=== PATIENT | male | born 1945 | race Caucasian/White ===

== ENCOUNTER → 2018-06-05 | Outpatient (CLI) | payer OTHER | END | disposition home or self-care (01) | LOC: CVU 07:09 | PROVIDERS: ATTEND Internal Medicine Cardiovascular Disease | DX: Z01.818 Encounter for other preprocedural examination (principal); I11.9 Hypertensive heart disease without heart failure | CPT/HCPCS: 78452; 93017; 93306; A9502 ==

== ENCOUNTER 2018-06-27 06:51 | Inpatient (IN) | payer OTHER ==
[~2018-06-27] VITALS: Ht 175.3 cm; Wt 119.4 kg
[2018-06-27 07:27] VITALS: BP 142/75
[2018-06-27] MEDS ORDERED: PLEASE ENTER HEIGHT AND WEIGHT MC SCH (07:30)
[2018-06-27] MEDS ORDERED: ASPIRIN 325 MG TABLET EC PO ONE (07:30)
[2018-06-27] MEDS ORDERED: VIT1CAPS42 PO (07:36)
[2018-06-27] MEDS ORDERED: DOXA2TAB9 PO (07:36)
[2018-06-27] MEDS ORDERED: IRBE75TA10 PO (07:36)
[2018-06-27] MEDS ORDERED: SPIR25TA5 PO (07:36)
[2018-06-27] MEDS ORDERED: ESOM40CA PO (07:36)
[2018-06-27] MEDS ORDERED: CHOL100011 PO (07:36)
[2018-06-27] MEDS ORDERED: CHLO25TA PO (07:36)
[2018-06-27] MEDS ORDERED: FENO145T30 PO (07:36)
[2018-06-27] MEDS ORDERED: ASCO100019 PO (07:36)
[2018-06-27] MEDS ORDERED: NEBI5TAB2 PO (07:36)
[2018-06-27] MEDS ORDERED: POTASSIUM CIT PO (07:36)
[2018-06-27] MEDS ORDERED: ATOR10TA PO (07:36)
[2018-06-27] MEDS ORDERED: OMEG-123 PO (07:36)
[2018-06-27] MEDS ORDERED: ASPIRIN 325 MG TABLET EC ONE (07:43)
[2018-06-27 07:54] LABS: BASOPHILS # (AUTO) 0.02 x10^3/uL (0-0.1); BASOPHILS % (AUTO) 0 % (0-1); EOSINOPHILS # (AUTO) 0.07 x10^3/uL (0-0.4); EOSINOPHILS % (AUTO) 1 % (1-7); LYMPHOCYTES # (AUTO) 1.49 x10^3/uL (1-3.4); LYMPHOCYTES % (AUTO) 26 % (22-44); MD NO; MEAN CORPUSCULAR HEMOGLOBIN 30.2 pg (27.5-34.5); MEAN CORPUSCULAR HGB CONC 33.7 g/dL (33.2-36.2); MEAN CORPUSCULAR VOLUME 89.7 fL (81-97); MEAN PLATELET VOLUME 8.1 fL (7.4-10.4); MONOCYTES # (AUTO) 0.44 x10^3/uL (0.2-0.8); MONOCYTES % (AUTO) 8 % (2-9); NEUTROPHILS # (AUTO) 3.76 x10^3/uL (1.8-6.8); NEUTROPHILS % (AUTO) 65 % (42-75); PLATELET COUNT 195 x10^3/uL (130-400); RED BLOOD COUNT 4.37 x10^6/uL (4.38-5.82); RED CELL DISTRIBUTION WIDTH 13.8 % (9.4-14.8)
[2018-06-27 08:06] LABS: ANION GAP 8 mmol/L (5-15); CALCIUM 8.6 mg/dL (8.5-10.1); CHLORIDE 104 mmol/L (98-107); CREATININE 1.35 mg/dL (0.7-1.3)
[2018-06-27] MEDS ORDERED: MIDAZOLAM 1 MG/ML, 2ML ONE (08:58)
[2018-06-27] MEDS ORDERED: FENTANYL PF 100 MCG/2ML ONE ×2 (08:59→14:06)
[2018-06-27] MEDS ORDERED: VERAPAMIL 2.5 MG/ML, 2ML ONE (14:06)
[2018-06-27] MEDS ORDERED: TICAGRELOR 90 MG TABLET ONE (14:06)
[2018-06-27] MEDS ORDERED: MIDAZOLAM 1 MG/ML, 5ML ONE (14:06)
[2018-06-27] MEDS ORDERED: BIVALIRUDIN 250 MG ONE ×2 (14:07→14:15)
[2018-06-27] MEDS ORDERED: PRASUGREL 10 MG TABLET ONE (14:14)
[2018-06-27] MEDS ORDERED: BIVALIRUDIN 250 MG in DEXTROSE 5% 50 ML IV SCH (15:21)
[2018-06-27] MEDS ORDERED: ONDANSETRON 2MG/ML, 2ML IVPush PRN (15:30)
[2018-06-27] MEDS ORDERED: ZOLPIDEM 5MG TABLET PO PRN (15:30)
[2018-06-27] MEDS ORDERED: ACETAMINOPHEN 325 MG TABLET PO PRN (15:30)
[2018-06-27] MEDS: SODIUM CHLORIDE 0.9% 1,000 ML IV SCH ×2 (17:02→23:41)
[2018-06-27 19:26] VITALS: BP 156/88
[2018-06-27] MEDS: OMEPRAZOLE 20 MG CAPSULE.DR PO SCH (20:57)
[2018-06-27] MEDS ORDERED: OMEGA-3/FISH OIL CAPSULE PO SCH (21:00)
[2018-06-27] MEDS ORDERED: TEMPLATE NON-FORMULARY MED. (Esomeprazole Magnesium** (Nexium**) 40 MG) PO SCH (21:00)
[2018-06-27] MEDS ORDERED: ATORVASTATIN 10 MG TABLET PO SCH (21:00)
[2018-06-27] MEDS ORDERED: IRBESARTAN 150 MG TABLET PO SCH (21:00)
[2018-06-27] MEDS ORDERED: ASCORBIC ACID 500 MG TABLET PO SCH (21:00)
[2018-06-28 01:33] VITALS: BP 137/75
[2018-06-28 05:43] LABS: ALBUMIN 3.3 g/dL (3.4-5.0); ANION GAP 7 mmol/L (5-15); CALCIUM 8.5 mg/dL (8.5-10.1); CHLORIDE 107 mmol/L (98-107); CREATININE 1.13 mg/dL (0.7-1.3)
[2018-06-28] MEDS: SODIUM CHLORIDE 0.9% 1,000 ML IV SCH (07:21)
[2018-06-28] MEDS ORDERED: OMEPRAZOLE 20 MG CAPSULE.DR PO SCH (07:30)
[2018-06-28 07:46] VITALS: BP 137/66
[2018-06-28] MEDS: OMEPRAZOLE 20 MG CAPSULE.DR PO SCH (08:14)
[2018-06-28] MEDS ORDERED: PRAS10TA4 PO (08:59)
[2018-06-28] MEDS ORDERED: ASPI-515 PO (08:59)
[2018-06-28] MEDS ORDERED: IRBESARTAN 150 MG TABLET PO SCH (09:00)
[2018-06-28] MEDS ORDERED: POTASSIUM CITRATE 1080 MG HOMEMEDPO SCH (09:00)
[2018-06-28] MEDS ORDERED: FENOFIBRATE 145 MG TABLET PO SCH (09:00)
[2018-06-28] MEDS ORDERED: DOXAZOSIN 2MG TABLET PO SCH (09:00)
[2018-06-28] MEDS ORDERED: SPIRONOLACTONE 25 MG TABLET PO SCH (09:00)
[2018-06-28] MEDS ORDERED: CHLORTHALIDONE 25 MG TABLET PO SCH (09:00)
[2018-06-28] MEDS ORDERED: CHOLECALCIFEROL 1,000 UNIT TABLET PO SCH (09:00)
[2018-06-28] MEDS ORDERED: NEBIVOLOL HCL 5 MG TABLET PO SCH (09:00)
[2018-06-28] MEDS ORDERED: PRASUGREL 10 MG TABLET PO SCH (09:00)
[2018-06-28] MEDS ORDERED: ASPIRIN 81 MG TABLET EC PO SCH (09:30)
== END 2018-06-28 11:12 | disposition home or self-care (01) | DRG 246 ==
LOC: CACL 06:51 → ORIP 15:12 → CACL 15:21 → 5SO 15:27 → DCLOUNGE 06-28 10:50
PROVIDERS: ADMIT Internal Medicine Cardiovascular Disease; ATTEND Internal Medicine Cardiovascular Disease
PROC: 027137Z Dilation of Coronary Artery, Two Arteries with Four or More Drug-eluting Intraluminal Devices, Percutaneous Approach (ICD-10-PCS; principal; 2018-06-27)
PROC: 4A023N7 Measurement of Cardiac Sampling and Pressure, Left Heart, Percutaneous Approach (ICD-10-PCS; 2018-06-27)
PROC: B2111ZZ Fluoroscopy of Multiple Coronary Arteries using Low Osmolar Contrast (ICD-10-PCS; 2018-06-27)
PROC: B2151ZZ Fluoroscopy of Left Heart using Low Osmolar Contrast (ICD-10-PCS; 2018-06-27)
DX: I25.10 Atherosclerotic heart disease of native coronary artery without angina pectoris (principal); I12.9 Hypertensive chronic kidney disease with stage 1 through stage 4 chronic kidney disease, or unspecified chronic kidney disease; N18.9 Chronic kidney disease, unspecified; K21.9 Gastro-esophageal reflux disease without esophagitis; E78.2 Mixed hyperlipidemia; Z82.0 Family history of epilepsy and other diseases of the nervous system; Z98.42 Cataract extraction status, left eye; Z98.41 Cataract extraction status, right eye; I86.8 Varicose veins of other specified sites
CPT/HCPCS: 36415; 93458; C9600; 80048; 82040; 85014; 85018; 85025; 93005; 93880; 93970; 99156; 99157; C1760; C1769; C1894; G0378; J0583; J2250; J3010; C1725; C1874; C1887; J7030; Q9967

== ENCOUNTER → 2019-01-09 | Outpatient (CLI) | payer OTHER ==
[~2019-01-09] MED LIST: ASCO100019 PO; ASPI-515 PO; ATOR10TA PO; CHLO25TA PO; CHOL100011 PO; DOXA2TAB9 PO; ESOM40CA PO; FENO145T30 PO; IRBE75TA10 PO; NEBI5TAB3 PO; OMEG-123 PO; POTASSIUM CIT PO; PRAS10TA4 PO; SPIR25TA5 PO; VIT1CAPS42 PO
== END | disposition home or self-care (01) ==
LOC: CVU 12:24
PROVIDERS: ATTEND Internal Medicine Cardiovascular Disease
DX: I86.8 Varicose veins of other specified sites (principal); R06.02 Shortness of breath; R05 Cough; I10 Essential (primary) hypertension; E78.2 Mixed hyperlipidemia; E11.9 Type 2 diabetes mellitus without complications; I25.10 Atherosclerotic heart disease of native coronary artery without angina pectoris; E78.00 Pure hypercholesterolemia, unspecified
CPT/HCPCS: 93922

== ENCOUNTER → 2019-01-10 | Outpatient (CLI) | payer OTHER ==
[~2019-01-10] MED LIST changes: +REGADENOSON 0.4 MG/5 ML SYRINGE ONE
== END | disposition home or self-care (01) ==
LOC: CFH 12:46
PROVIDERS: ATTEND Internal Medicine Cardiovascular Disease
DX: I10 Essential (primary) hypertension (principal); R06.02 Shortness of breath; M79.609 Pain in unspecified limb; I86.8 Varicose veins of other specified sites
CPT/HCPCS: 78452; 93017; A9502; J2785

== ENCOUNTER 2019-02-07 08:55 | Day surgery (SDC) | payer OTHER ==
[~2019-02-07] VITALS: Ht 175.3 cm; Wt 125.0 kg
[~2019-02-07 08:55] MED LIST changes: -REGADENOSON 0.4 MG/5 ML SYRINGE ONE
[2019-02-07 09:21] VITALS: BP 124/72
[2019-02-07 09:59] LABS: BASOPHILS # (AUTO) 0.02 x10^3/uL (0-0.1); BASOPHILS % (AUTO) 0 % (0-1); EOSINOPHILS # (AUTO) 0.08 x10^3/uL (0-0.4); EOSINOPHILS % (AUTO) 2 % (1-7); LYMPHOCYTES # (AUTO) 1.26 x10^3/uL (1-3.4); LYMPHOCYTES % (AUTO) 23 % (22-44); MD NO; MEAN CORPUSCULAR HEMOGLOBIN 30.2 pg (27.5-34.5); MEAN CORPUSCULAR HGB CONC 33.6 g/dL (33.2-36.2); MEAN CORPUSCULAR VOLUME 89.7 fL (81-97); MONOCYTES # (AUTO) 0.47 x10^3/uL (0.2-0.8); MONOCYTES % (AUTO) 9 % (2-9); NEUTROPHILS # (AUTO) 3.71 x10^3/uL (1.8-6.8); NEUTROPHILS % (AUTO) 67 % (42-75); PLATELET COUNT 187 x10^3/uL (130-400); RED BLOOD COUNT 4.33 x10^6/uL (4.38-5.82); RED CELL DISTRIBUTION WIDTH 12.9 % (9.4-14.8)
[2019-02-07 10:11] LABS: ANION GAP 8 mmol/L (5-15); CALCIUM 8.9 mg/dL (8.5-10.1); CHLORIDE 102 mmol/L (98-107); CREATININE 1.44 mg/dL (0.7-1.3)
[2019-02-07] MEDS ORDERED: VERAPAMIL 2.5 MG/ML, 2ML ONE (10:15)
[2019-02-07] MEDS ORDERED: FENTANYL PF 100 MCG/2ML ONE (10:15)
[2019-02-07] MEDS ORDERED: LIDOCAINE-MPF 1%, 5ML ONE (10:15)
[2019-02-07] MEDS ORDERED: HEPARIN 1,000 UNITS/ML, 10ML ONE (10:15)
[2019-02-07] MEDS ORDERED: NITROGLYCERIN 5 MG/ML, 10ML ONE (10:15)
[2019-02-07] MEDS ORDERED: MIDAZOLAM 1 MG/ML, 5ML ONE (10:15)
[2019-02-07] MEDS ORDERED: BIVALIRUDIN 250 MG ONE (10:49)
== END 2019-02-07 16:45 | disposition home or self-care (01) ==
LOC: CACL 08:55
PROVIDERS: ATTEND Internal Medicine Cardiovascular Disease
DX: I25.10 Atherosclerotic heart disease of native coronary artery without angina pectoris (principal); I10 Essential (primary) hypertension; E78.5 Hyperlipidemia, unspecified; K21.9 Gastro-esophageal reflux disease without esophagitis; I86.8 Varicose veins of other specified sites; Z98.61 Coronary angioplasty status; Z79.82 Long term (current) use of aspirin
CPT/HCPCS: 36415; 80048; 85025; 93005; 93458; 99156; 99157; C1725; C1769; C1874; C1887; C1894; C9600; J0583; J1644; J2250; J3010; Q9967

== ENCOUNTER → 2019-11-20 | Outpatient (CLI) | payer OTHER ==
[2019-11-20 15:34] LABS: BASOPHILS # (AUTO) 0.02 x10^3/uL (0-0.1); BASOPHILS % (AUTO) 0 % (0-1); EOSINOPHILS # (AUTO) 0.08 x10^3/uL (0-0.4); EOSINOPHILS % (AUTO) 1 % (1-7); LYMPHOCYTES % (AUTO) 22 % (22-44); MD NO; MEAN CORPUSCULAR HGB CONC 33.3 g/dL (33.2-36.2); MEAN CORPUSCULAR VOLUME 89.9 fL (81-97); MEAN PLATELET VOLUME 8.7 fL (7.4-10.4); MONOCYTES # (AUTO) 0.41 x10^3/uL (0.2-0.8); MONOCYTES % (AUTO) 7 % (2-9); NEUTROPHILS # (AUTO) 4.39 x10^3/uL (1.8-6.8); NEUTROPHILS % (AUTO) 70 % (42-75); PLATELET COUNT 203 x10^3/uL (130-400); RED BLOOD COUNT 4.21 x10^6/uL (4.38-5.82)
[2019-11-20 15:51] LABS: ANION GAP 7 mmol/L (5-15); CALCIUM 8.8 mg/dL (8.5-10.1); CHLORIDE 106 mmol/L (98-107); CREATININE 1.36 mg/dL (0.7-1.3)
== END | disposition home or self-care (01) ==
LOC: CFH 11:57
PROVIDERS: ATTEND Internal Medicine Cardiovascular Disease
DX: E78.5 Hyperlipidemia, unspecified (principal); I10 Essential (primary) hypertension; I20.9 Angina pectoris, unspecified; R06.02 Shortness of breath; R07.89 Other chest pain; R73.01 Impaired fasting glucose; Z98.61 Coronary angioplasty status
CPT/HCPCS: 36415; 80048; 85025

== ENCOUNTER 2019-11-23 09:04 | Day surgery (SDC) | payer OTHER ==
[~2019-11-23] VITALS: Ht 177.8 cm; Wt 114.5 kg
[~2019-11-23 09:04] MED LIST changes: +FENO145T19 PO; -FENO145T30 PO; -IRBE75TA10 PO; +IRBE75TA6 PO
[2019-11-23 09:38] VITALS: BP 139/67
[2019-11-23] MEDS ORDERED: MIDAZOLAM 1 MG/ML, 5ML ONE (10:38)
[2019-11-23] MEDS ORDERED: FENTANYL PF 100 MCG/2ML ONE (10:38)
[2019-11-23] MEDS ORDERED: VERAPAMIL 2.5 MG/ML, 2ML ONE (10:38)
[2019-11-23] MEDS ORDERED: TICAGRELOR 90 MG TABLET ONE (10:38)
[2019-11-23] MEDS ORDERED: HEPARIN 1,000 UNITS/ML, 10ML ONE (10:39)
[2019-11-23] MEDS ORDERED: LIDOCAINE-MPF 1%, 5ML ONE (10:39)
[2019-11-23] MEDS ORDERED: BIVALIRUDIN 250 MG ONE (10:39)
[2019-11-23] MEDS ORDERED: SODIUM CHLORIDE 0.9% 1,000 ML IV SCH (11:16)
== END 2019-11-23 13:10 | disposition home or self-care (01) ==
LOC: CACL 09:04
PROVIDERS: ATTEND Internal Medicine Cardiovascular Disease
DX: I25.119 Atherosclerotic heart disease of native coronary artery with unspecified angina pectoris (principal); I10 Essential (primary) hypertension; E78.5 Hyperlipidemia, unspecified; K21.9 Gastro-esophageal reflux disease without esophagitis; I86.8 Varicose veins of other specified sites; E55.9 Vitamin D deficiency, unspecified; E66.9 Obesity, unspecified; N28.9 Disorder of kidney and ureter, unspecified; Z98.890 Other specified postprocedural states; Z95.818 Presence of other cardiac implants and grafts; Z79.899 Other long term (current) drug therapy; Z79.82 Long term (current) use of aspirin; Z98.61 Coronary angioplasty status; Z87.891 Personal history of nicotine dependence; Z68.36 Body mass index [BMI] 36.0-36.9, adult
CPT/HCPCS: 93454; 99156; C1769; C1894; J1644; J2250; J3010; Q9967; J0583